=== PATIENT | female | born 1945 ===

== ENCOUNTER 2018-11-01 15:57 | Inpatient (IN) ==
[2018-11-01] MEDS ORDERED: dilTIAZem Drip 125 MG/125 ML PREMIX IV SCH (16:10)
[2018-11-01 18:06] LABS: Free T4 (Free Thyroxine) 1.53 NG/DL (0.76-1.46); Thyroid Stimulating Hormone 0.436 uIU/ml (0.358-3.74)
[2018-11-01] MEDS ORDERED: ENOXAPARIN 40 MG/0.4 ML SYRINGE SUBCUT SCH (19:00)
[2018-11-01] MEDS ORDERED: GLUCAGON 1 MG VIAL IM PRN (20:46)
[2018-11-01] MEDS ORDERED: DEXTROSE 50% 25 GM/50 ML SYRINGE IV PRN (20:46)
[2018-11-01] MEDS ORDERED: LEVOFLOXACIN INJ 750 MG in PREMIX 1 EACH IV SCH (21:00)
[2018-11-01] MEDS ORDERED: SODIUM CHLORIDE 0.9% 1,000 ML IV SCH (21:00)
[2018-11-01] MEDS ORDERED: ATORVASTATIN 20 MG TABLET PO SCH (21:00)
[2018-11-01] MEDS: DILTIAZEM 30 MG TABLET PO SCH (21:51)
[2018-11-01] MEDS: metroNIDAZOLE INJ 500 MG in PREMIX 1 EACH IV SCH (21:52)
[2018-11-01] MEDS: INSULIN LISPRO 100 UNIT/ML SUBCUT SCH (21:58)
[2018-11-02 04:16] LABS: Basophils # 0.1 10*3/uL (0.0-0.2); Basophils % 0.7 % (0.0-0.8); Eosinophils # 0.2 10*3/uL (0.0-0.87); Eosinophils % 3.1 % (0.00-10.9); Hematocrit 33.7 VOL% (35.7-47.0); Hemoglobin 11.1 GM/DL (12.0-16.0); Immature Granulocytes % 0.8 %; Immature Granulocytes Absolute 0.06 #; Lymphocytes % 14.6 % (21.3-54.2); Mean Corpuscular HGB Conc 32.9 GM/DL (32-36); Mean Corpuscular Hemoglobin 31 PG (27-34); Mean Corpuscular Volume 93.1 FL (87-102); Mean Platelet Volume 11.1 FL (9.6-12.0); Monocytes % 13.3 % (1.7-12.7); Neutrophils # 4.8 10*3/uL (1.4-7.4); Neutrophils % 67.5 % (38.7-73.9); Platelet Count 259 T/CUMM (130-400); Red Blood Count 3.62 MC/CUMM (3.8-5.5); Red Cell Distribution Width 12.8 % (9.3-17.3); White Blood Count 7.1 T/CUMM (4-12)
[2018-11-02 04:39] LABS: Calcium 7.9 MG/DL (8.5-10.1); Osmolality,Calculated 298.7 MOS/KG (273-304); Potassium 3.5 MMOL/L (3.5-5.1); Risk Ratio 3.78; VLDL CHOLESTEROL 32.4 MG/DL
[2018-11-02 05:27] LABS: Band Neutrophils 11 % (0-10); Eosinophils 2 % (0-10); Lymphocytes 19 % (20-55); Metamyelocytes 2 %; Segmented Neutrophils 54 % (50-85); Total Cells Counted 100
[2018-11-02 05:28] LABS: Hypochromasia Slight; Platelet Estimate Normal; Polychromasia Few
[2018-11-02] MEDS: metroNIDAZOLE INJ 500 MG in PREMIX 1 EACH IV SCH ×3 (06:00→20:49)
[2018-11-02] MEDS: DILTIAZEM 30 MG TABLET PO SCH ×4 (09:45→20:50)
[2018-11-02] MEDS: amLODIPine 5 MG TABLET PO SCH (09:45)
[2018-11-02] MEDS: CLOPIDOGREL 75 MG TABLET PO SCH (09:45)
[2018-11-02] MEDS: ASPIRIN EC 81 MG TABLET PO SCH (09:45)
[2018-11-02] MEDS: INSULIN LISPRO 100 UNIT/ML SUBCUT SCH ×4 (09:48→20:49)
[2018-11-02] MEDS: ENOXAPARIN 80 MG/0.8 ML SYRINGE SUBCUT SCH (12:35)
[2018-11-02] MEDS: CARVEDILOL 6.25 MG TABLET PO SCH ×2 (12:35→20:49)
[2018-11-02] MEDS: PANTOPRAZOLE 40 MG TABLET PO SCH (12:35)
[2018-11-02] MEDS: VANCOMYCIN 50 MG/ML 60 ML/BOTTLE PO SCH (17:23)
[2018-11-02] MEDS: CHOLESTYRAMINE 4 GM PACK PO SCH (20:49)
[2018-11-02] MEDS: ATORVASTATIN 40 MG TABLET PO SCH (20:50)
[2018-11-03] MEDS: ENOXAPARIN 80 MG/0.8 ML SYRINGE SUBCUT SCH ×2 (00:11→13:55)
[2018-11-03] MEDS: VANCOMYCIN 50 MG/ML 60 ML/BOTTLE PO SCH ×4 (00:11→18:40)
[2018-11-03] MEDS: metroNIDAZOLE INJ 500 MG in PREMIX 1 EACH IV SCH ×3 (05:55→21:07)
[2018-11-03 08:37] LABS: Basophils # 0.1 10*3/uL (0.0-0.2); Basophils % 0.9 % (0.0-0.8); Eosinophils # 0.2 10*3/uL (0.0-0.87); Eosinophils % 2.7 % (0.00-10.9); Hematocrit 30.6 VOL% (35.7-47.0); Hemoglobin 10.2 GM/DL (12.0-16.0); Immature Granulocytes % 4.1 %; Immature Granulocytes Absolute 0.32 #; Lymphocytes # 1.3 10*3/uL (1.4-4.0); Lymphocytes % 16.6 % (21.3-54.2); Mean Corpuscular HGB Conc 33.3 GM/DL (32-36); Mean Corpuscular Hemoglobin 31 PG (27-34); Mean Corpuscular Volume 93.9 FL (87-102); Mean Platelet Volume 10.4 FL (9.6-12.0); Monocytes # 0.8 10*3/uL (0.11-0.8); Monocytes % 9.9 % (1.7-12.7); Neutrophils # 5.1 10*3/uL (1.4-7.4); Neutrophils % 65.8 % (38.7-73.9); Platelet Count 255 T/CUMM (130-400); Red Blood Count 3.26 MC/CUMM (3.8-5.5); Red Cell Distribution Width 13.4 % (9.3-17.3); White Blood Count 7.8 T/CUMM (4-12)
[2018-11-03 09:01] LABS: Band Neutrophils 2 % (0-10); Eosinophils 5 % (0-10); Hypochromasia 1+; Lymphocytes 13 % (20-55); Platelet Estimate Adequate; Segmented Neutrophils 72 % (50-85); Total Cells Counted 100
[2018-11-03 09:05] LABS: Calcium 7.8 MG/DL (8.5-10.1); Potassium 3.6 MMOL/L (3.5-5.1)
[2018-11-03] MEDS: CHOLESTYRAMINE 4 GM PACK PO SCH ×2 (09:19→20:34)
[2018-11-03] MEDS: CLOPIDOGREL 75 MG TABLET PO SCH (09:21)
[2018-11-03] MEDS: DILTIAZEM 30 MG TABLET PO SCH ×4 (09:21→20:32)
[2018-11-03] MEDS: CARVEDILOL 6.25 MG TABLET PO SCH ×2 (09:21→20:34)
[2018-11-03] MEDS: ASPIRIN EC 81 MG TABLET PO SCH (09:22)
[2018-11-03] MEDS: PANTOPRAZOLE 40 MG TABLET PO SCH (09:22)
[2018-11-03] MEDS: amLODIPine 5 MG TABLET PO SCH (09:22)
[2018-11-03] MEDS: INSULIN LISPRO 100 UNIT/ML SUBCUT SCH ×4 (09:24→20:34)
[2018-11-03] MEDS: APIXABAN 5 MG TABLET PO SCH (20:33)
[2018-11-03] MEDS: ATORVASTATIN 40 MG TABLET PO SCH (20:34)
[2018-11-04] MEDS: VANCOMYCIN 50 MG/ML 60 ML/BOTTLE PO SCH ×3 (00:09→13:01)
[2018-11-04 04:20] LABS: Basophils # 0.1 10*3/uL (0.0-0.2); Basophils % 0.7 % (0.0-0.8); Eosinophils # 0.3 10*3/uL (0.0-0.87); Eosinophils % 3.2 % (0.00-10.9); Hematocrit 29.1 VOL% (35.7-47.0); Hemoglobin 9.4 GM/DL (12.0-16.0); Immature Granulocytes % 6.6 %; Immature Granulocytes Absolute 0.55 #; Lymphocytes # 1.3 10*3/uL (1.4-4.0); Lymphocytes % 15.8 % (21.3-54.2); Mean Corpuscular HGB Conc 32.3 GM/DL (32-36); Mean Corpuscular Hemoglobin 31 PG (27-34); Mean Corpuscular Volume 95.1 FL (87-102); Mean Platelet Volume 10.5 FL (9.6-12.0); Monocytes # 0.9 10*3/uL (0.11-0.8); NRBC # 0.02 10*3/uL; Neutrophils # 5.2 10*3/uL (1.4-7.4); Neutrophils % 62.7 % (38.7-73.9); Platelet Count 258 T/CUMM (130-400); Red Blood Count 3.06 MC/CUMM (3.8-5.5); Red Cell Distribution Width 13.2 % (9.3-17.3); White Blood Count 8.3 T/CUMM (4-12)
[2018-11-04] MEDS ORDERED: LEVOFLOXACIN INJ 750 MG in PREMIX 1 EACH IV SCH (05:00)
[2018-11-04 05:01] LABS: Calcium 7.7 MG/DL (8.5-10.1); Potassium 3.6 MMOL/L (3.5-5.1)
[2018-11-04 05:10] LABS: Band Neutrophils 1 % (0-10); Eosinophils 4 % (0-10); Lymphocytes 19 % (20-55); Platelet Estimate Normal; Segmented Neutrophils 73 % (50-85); Total Cells Counted 100
[2018-11-04 05:11] LABS: Polychromasia Slight
[2018-11-04] MEDS: metroNIDAZOLE INJ 500 MG in PREMIX 1 EACH IV SCH ×2 (05:20→14:02)
[2018-11-04] MEDS ORDERED: DILTIAZEM CD 120 MG CAPSULE PO SCH (09:30)
[2018-11-04] MEDS: DILTIAZEM 30 MG TABLET PO SCH (09:31)
[2018-11-04] MEDS: CARVEDILOL 6.25 MG TABLET PO SCH (10:41)
[2018-11-04] MEDS: APIXABAN 5 MG TABLET PO SCH (10:41)
[2018-11-04] MEDS: INSULIN LISPRO 100 UNIT/ML SUBCUT SCH ×3 (10:41→17:43)
[2018-11-04] MEDS: PANTOPRAZOLE 40 MG TABLET PO SCH (10:41)
[2018-11-04] MEDS: CHOLESTYRAMINE 4 GM PACK PO SCH (10:41)
[2018-11-04] MEDS: ASPIRIN EC 81 MG TABLET PO SCH (10:41)
[2018-11-04] MEDS: CLOPIDOGREL 75 MG TABLET PO SCH (11:19)
[2018-11-04 11:52] VITALS: BP 122/57
== END 2018-11-04 17:40 | disposition home or self-care (01) | DRG 371 ==
LOC: EDUNIT# → N.ED 15:57 → N.EDINP 18:53 → N.TELEN 19:42
PROVIDERS: ADMIT Internal Medicine; ATTEND Internal Medicine